=== PATIENT | male | born 1955 | race Caucasian/White ===

== ENCOUNTER → 2016-10-30 | Outpatient (CLI) | payer OTHER ==
[~2016-10-30] MED LIST: ALLO100T30 PO; ALLO300T PO; COLC0.6C3 PO; DASA100T PO; HYDR500C PO; NONE PER PT; PROP80TA PO
== END | disposition home or self-care (01) ==
LOC: CFH 10:14
PROVIDERS: ATTEND Internal Medicine Hematology & Oncology
DX: I82.442 Acute embolism and thrombosis of left tibial vein (principal); C92.10 Chronic myeloid leukemia, BCR/ABL-positive, not having achieved remission